=== PATIENT | male | born 1935 | race Caucasian/White ===

== ENCOUNTER → 2022-04-17 12:48 | Outpatient (CLI) | payer MEDICARE, SELFPAY ==
--- NOTE | 2022-04-17 12:53 | DI.CT.S_ITS ---
PROCEDURE: CT IVP A/P W/WO INDICATIONS: HISTORY OF GROSS HEMATURIA/NEPHROLITHIASIS/LABS TECHNIQUE: Optional 5 mm thick noncontrast images acquired from the diaphragm to the symphysis pubis. After the administration of intravenous contrast, 5 mm thick images acquired from the diaphragm to the symphysis pubis after a 10-minute delay. 2 mm thick coronal and sagittal reformats were then performed of the kidneys and ureters. For radiation dose reduction, the following was used: automated exposure control, adjustment of mA and/or kV according to patient size. COMPARISON: None. FINDINGS: Image quality: Excellent Lung bases: Bibasilar fibrosis is present. The coronary arteries have atherosclerotic calcifications. Lung bases are clear. Heart size is normal. Urinary system: Both kidneys are normal in size, without hydronephrosis or obstructing nephrolithiasis on pre-contrast images. There are nonobstructing calculi in both kidneys, more on the right measuring between 2 and 5 mm. No perinephric fat stranding. There is normal bilateral renal enhancement. The left kidney has two 1.5 cm cysts in the midpole laterally and a 2 cm pelvic cyst. Renal calyces appear normal in morphology when filled with contrast. Opacified portions of both ureters demonstrate normal caliber. Bladder wall thickness is normal. No calcified bladder stones. Other solid organs: Liver is normal in size and enhancement. The liver is hypodense consistent with hepatic steatosis Gallbladder status post cholecystectomy. Biliary system is non dilated. Pancreas enhances normally. Spleen is normal in size and enhancement. No adrenal nodules. Peritoneum and bowel: Small hiatal hernia. Bowel loops demonstrate normal wall thickness and caliber. No free fluid or air. Nodes and vessels: No retroperitoneal or mesenteric adenopathy by size criteria. The suprarenal aorta is aneurysmally dilated measuring 3.4 cm in greatest diameter. The celiac trunk and SMA are patent. The left renal artery is patent. The right renal artery has a main renal artery which has mild stenosis and an accessory renal artery in the infrarenal aorta which is patent. Abdominal wall: No ventral hernias. Pelvis: No pathologic free pelvic fluid. No inguinal hernias or adenopathy. Bones: No suspicious bony lesions. No vertebral body compression fractures. IMPRESSION: 1. No obstructing nephroureteral calculi. Both kidneys have nonobstructing stones measuring 2-5 mm. Especially on the right. 2. No abnormal enhancement of the kidneys. No solid renal masses. 3. No filling defects on delayed phase images. 4. Simple left renal cysts. 5. Fibrosis of the lung bases. 6. Coronary artery calcifications 7. 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 Dictated by: Carlos Tanner M.D. on 04/17/2022 at 15:14 Approved by: Carlos Tanner M.D. on 04/17/2022 at 15:23
[2022-04-17 13:28] LABS: Estimated Glomerular Filt Rate > 60 mL/min (>60)
== END ==
PROVIDERS: Referring Provider Urology; Visit Provider Urology
DX: N20.0 Calculus of kidney (principal); Z87.448 Personal history of other diseases of urinary system; N28.1 Cyst of kidney, acquired; J84.10 Pulmonary fibrosis, unspecified
CPT/HCPCS: 36415; 74178; 82565; Q9967